=== PATIENT | male | born 1975 | race Caucasian/White ===

== ENCOUNTER 2019-10-19 21:26 | Emergency (ER) | payer OTHER ==
[2019-10-19] MEDS ORDERED: ceFAZolin 1,000 MG VIAL (IM USE) IM STA (22:17)
[2019-10-19] MEDS ORDERED: LIDOCAINE 1% INJ 10MG/ML (20 ML MDV) SQ ONE (22:17)
--- NOTE | 2019-10-19 22:48 | XR ---
EXAMINATION TYPE: XR finger LT DATE OF EXAM: 10/19/2019 COMPARISON: NONE HISTORY: Laceration TECHNIQUE: 3 views left index finger FINDINGS: There is soft tissue deformity at the tip of the left index finger. I see no fracture nor d islocation. IMPRESSION: Soft tissue laceration deformity. No evidence of foreign body. No fracture seen.
[2019-10-19] MEDS ORDERED: CEPHALEXIN 500MG STARTER PACK 4 CAP BTL PO STA (23:36)
--- NOTE | 2019-10-19 23:38 | ED ---
Wound/Laceration HPI - General Source: patient Mode of arrival: ambulatory Limitations: no limitations <Yodit Tony - Last Filed: 10/20/19 10:26> <Dana Alexandra - Last Filed: 10/23/19 21:46> - General Chief Complaint: Wound/Laceration Stated Complaint: Finger Lac Time Seen by Provider: 10/19/19 22:10 - History of Present Illness Initial Comments: 44-year-old male presenting for left index finger injury. Patient states he got caught when trying to put down an awning for a camper. Patient states he sustained a laceration. He states it was bleeding so bad he could not assess it and then wrapped it and presented to the ER for evaluation. States Tdap is UTD. Denies loss of ROM, weakness of digits, denies loss of sensation of the digits. Denies additional areas of injury> Denies partial amputation. Has no additional complaints. Patient appears well nontoxic in no acute distress on arrival. (Yodit Tony) - Related Data Previous Rx's Medication Instructions Recorded Cephalexin [Keflex] 500 mg PO Q8HR 7 Days #21 cap 10/19/19 Allergies Allergy/AdvReac Type Severity Reaction Status Date / Time No Known Allergies Allergy Verified 10/19/19 21:50 Review of Systems ROS Other: All systems not noted in ROS Statement are negative. <Yodit Tony - Last Filed: 10/20/19 10:26> ROS Other: All systems not noted in ROS Statement are negative. <Dana Alexandra - Last Filed: 10/23/19 21:46> ROS Statement: Those systems with pertinent positive or pertinent negative responses have been documented in the HPI. Past Medical History Past Medical History: Hypertension History of Any Multi-Drug Resistant Organisms: None Reported Past Surgical History: Orthopedic Surgery Additional Past Surgical History / Comment(s): left shoulder, Past Psychological History: No Psychological Hx Reported Smoking Status: Current every day smoker Past Alcohol Use History: None Reported Past Drug Use History: None Reported <Yodit Tony - Last Filed: 10/20/19 10:26> General Exam Limitations: no limitations <Yodit Tony - Last Filed: 10/20/19 10:26> - General Exam Comments Initial Comments: General: The patient is awake and alert, in no distress, and does not appear acutely ill. Eye: Pupils are equal, round and reactive to light, extra-ocular movements are intact. No nystagmus. There is normal conjunctiva bilaterally. No signs of icterus. Musculoskeletal: Upon inspection there is 1/5 of nail bed size subungual hematoma of the left index finger, there is some minimal left index finger nail involvement on the lateral aspect. Laceration deformity distal to the DIP joint and adjacent to nail, is a semilunar shape edges approximate well naturally. Finger pads callused. Normal ROM, tyra the MCP, DIP and PIP joints. Strength 5/5 at the MCP DIP and PIP joint. Sensation intact proximal and distal to injury site. Radial pulses equal bilaterally 2+. Capillary refill is < 3 seconds. Neurological: A&O x 3. CN II-XII intact grossly, There are no obvious motor or sensory deficits. Coordination appears grossly intact. Speech is normal. Skin: Skin is warm and dry and no rashes or lesions are noted. Psychiatric: Cooperative, appropriate mood & affect, normal judgment. (Yodit Tony) Course Vital Signs 10/19/19 10/19/19 21:45 23:47 Temperature 98.5 F 98 F Pulse Rate 79 63 Respiratory 18 16 Rate Blood Pressure 147/95 134/84 O2 Sat by Pulse 98 96 Oximetry Medical Decision Making <Yodit Tony - Last Filed: 10/20/19 10:26> <Dana Alexandra - Last Filed: 10/23/19 21:46> - Medical Decision Making 44yo male presenting for finger laceration, Extensively irrigated, cleansed with iodine, repaired. XR no fracture. oral antibiotics given on discharge. Patient is aware of proper care, what to avoid and return parameters. TImely removal of sutures discussed. Patient verbalized understanding and was discharged appearing well. Discussed case with Dr. Alexandra (Yodit Tony) I was available for consultation in the emergency department. The history and physical exam were done by the midlevel provider. I was consulted for this patients care. I reviewed the case with the midlevel provider and based on their presentation of the patient, I agree with the assessment, medical decision making and plan of care as documented. Chart was dictated using [employer] dictation software. Attempts were made to correct any dictation errors however some typographical errors may persist. Patient was seen during a national state of emergency due to the Covid-19 pandemic. (Dana Alexandra) Disposition Is patient prescribed a controlled substance at d/c from ED?: No Time of Disposition: 23:37 <Yodit Tony - Last Filed: 10/20/19 10:26> <Dana Alexandra - Last Filed: 10/23/19 21:46> Clinical Impression: Finger laceration Disposition: HOME SELF-CARE Condition: Good Instructions (If sedation given, give patient instructions): Finger Laceration (ED) Additional Instructions: Please use medication as discussed. Please follow-up with family doctor in the next 2 days, sutures to be removed in 7-10days.. Please return to emergency room if the symptoms increase or worsen or for any other concerns. Prescriptions: Cephalexin [Keflex] 500 mg PO Q8HR 7 Days #21 cap Referrals: None,Stated [Primary Care Provider] - 1-2 days
[2019-10-19 23:53] VITALS: BP 134/84; PULSE 63; RESP 16; TEMP 98
== END 2019-10-19 23:47 | disposition home or self-care (01) ==
LOC: EC 21:26
DX: S61.311A Laceration without foreign body of left index finger with damage to nail, initial encounter (principal); F17.200 Nicotine dependence, unspecified, uncomplicated; W26.8XXA Contact with other sharp object(s), not elsewhere classified, initial encounter
CPT/HCPCS: 99283; 12001; 73140; J2001